=== PATIENT | female | born 1965 | race Caucasian/White ===

== ENCOUNTER → 2017-09-08 | Outpatient (CLI) | payer OTHER ==
[~2017-09-08] MED LIST: ATOR20TA65 PO; BUSP7.5T7 PO; CHOL500050 PO; FLU150 PO; MELA1TAB23 PO
--- NOTE | 2017-09-09 09:12 | RADIOLOGY IMAGING REPORT ---
[place] [facility] [place] JONAH JAMES : [id number] MR: [id number] V: [id number] EXAM DATE: [id number] ORDERING PHYSICIAN: GARFIELD WOMACK TECHNOLOGIST: Graciela Snider PROCEDURE:BILATERAL DIGITAL SCREENING MAMMOGRAM WITH CAD ASSISTED INTERPRETATION & 3D TOMOSYNTHESIS COMPARISON:Prior mammograms 12/04/15 INDICATIONS:SCREENING FINDINGS: Moderately heterogeneous fibroglandular tissue is seen throughout the breasts. The parenchymal pattern has remained stable allowing for difference in mammographic technique & patient positioning. There is no evidence of malignant appearing mass, malignant appearing calcifications or other secondary sign of malignancy in either breast. DIAGNOSTIC CATEGORY 2--BENIGN FINDING. RECOMMENDATIONS: ROUTINE MAMMOGRAM AND CLINICAL EVALUATION. IMPRESSION: BIRADS 2: Benign finding No significant abnormality is seen Dictated by: Kelsy Antonio M.D. on 09/08/2017 at 14:22 Transcribed by: GRACE on 09/08/2017 at 14:27 Approved by: Kelsy Antonio M.D. on 09/09/2017 at 9:11 [facility]
== END ==
LOC: MAMO 01:21
PROVIDERS: ATTEND Nurse Practitioner Primary Care
DX: Z12.31 Encounter for screening mammogram for malignant neoplasm of breast (principal)
CPT/HCPCS: 77063; 77067

== ENCOUNTER → 2017-09-09 | Outpatient (CLI) | payer OTHER | LOC: RESP 20:03 | PROVIDERS: ATTEND Nurse Practitioner Primary Care | DX: G47.33 Obstructive sleep apnea (adult) (pediatric) (principal); G47.36 Sleep related hypoventilation in conditions classified elsewhere; E66.9 Obesity, unspecified ==

== ENCOUNTER → 2017-10-23 | Outpatient (CLI) | payer OTHER ==
[~2017-10-23] MED LIST changes: +ASCO-182 PO; +FLUC150T40 PO; +MAGN500C10 PO; +MULT-1335 PO
== END ==
LOC: LAB 09:24
PROVIDERS: ATTEND Obstetrics & Gynecology
DX: Z11.3 Encounter for screening for infections with a predominantly sexual mode of transmission (principal); Z11.8 Encounter for screening for other infectious and parasitic diseases
CPT/HCPCS: 36415; 86592; 86703; 86706; 86803; 87491; 87591

== ENCOUNTER 2017-10-28 02:47 | Day surgery (SDC) | payer OTHER ==
[2017-10-28] VITALS (7 sets, daily range): BP systolic 114–127; BP diastolic 74–84
[~2017-10-28] VITALS: Ht 165.1 cm; Wt 92.5 kg
[2017-10-28] MEDS ORDERED: PROPOFOL EMUL(*) 10MG/ML 20 ML 60 ML ONE (07:16)
[2017-10-28] MEDS ORDERED: LIDOCAINE MPF 1% 5 ML VIAL ONE (07:16)
[2017-10-28] MEDS ORDERED: NORMOSOL R SOLN(*) 1000 ML BAG 1,000 ML IV PRN (08:45)
[2017-10-28] MEDS ORDERED: LIDOCAINE/SOD BICARB 8.4% SYR ID ONE (08:45)
--- NOTE | 2017-10-28 12:24 | Short(Outpt) Discharge Summary ---
Discharge Summary Reason for Hosp/Final Diag: (1) Colon cancer screening Status: Chronic Hospital Course & Plan: Colonoscopy with polypectomy x4 completed without problems. Departure Discharge to: Home, Self Care Discharge Instructions Home Meds Active Scripts Fluconazole (DIFLUCAN) 150 Mg Tablet, 150 MG PO ONCE, #1 TAB 0 Refills Prov:DEVANTE SARABIA MD 10/23/17 Cholecalciferol (Vitamin D3) (VITAMIN D3) 50,000 Unit Capsule, 1 CAPSULE PO QWEEK, #8 CAPSULE 0 Refills Prov:GARFIELD WOMACK DNP, [facility]- 04/08/17 Reported Medications Magnesium Oxide (MAGNESIUM) 500 Mg Capsule, 500 MG PO DAILY, CAPSULE 10/22/17 Ascorbic Acid (VITAMIN C) 500 Mg Tablet, 1000 MG PO DAILY, TAB 10/22/17 Multivitamin With Minerals (MULTIPLE VITAMIN) 1 Each Tablet, 1 EACH PO, TAB 10/21/17 Discontinued Reported Medications Melatonin (MELATONIN) 1 Mg Tablet, 1 MG PO QHS 03/06/17 Discontinued Scripts Fluconazole (FLUCONAZOLE) 150 Mg Tab, 1 TAB PO ONCE, #1 TAB 0 Refills Prov:GARFIELD WOMACK DNP, [facility]- 03/27/17 Diet: Regular Activity: As Tolerated Special Instructions: Your colonoscopy was completed without any problems and your prep was fair, there was still quite a bit of liquid and vegetable matter in your colon. I removed 4 polyps from your colon and they were sent to pathology. My office will call you in the next week and let you know what the polyps are and when your next colonoscopy should be (3, 5, or 10 years depending on pathology results). SHELL JIMENEZ MD Oct 28, 2017 12:24
== END 2017-10-28 13:50 | disposition home or self-care (01) ==
LOC: OR 02:47
PROVIDERS: ATTEND Surgery
DX: Z12.11 Encounter for screening for malignant neoplasm of colon (principal); D12.2 Benign neoplasm of ascending colon; D12.5 Benign neoplasm of sigmoid colon
CPT/HCPCS: 00811; 45385; 88305; J2001; J2704

== ENCOUNTER → 2017-10-30 | Outpatient (CLI) | payer OTHER | LOC: RESP 21:03 | PROVIDERS: ATTEND Nurse Practitioner Primary Care | DX: G47.33 Obstructive sleep apnea (adult) (pediatric) (principal) ==